=== PATIENT | male | born 2000 | race Caucasian/White ===

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

== ENCOUNTER 2024-09-02 09:55 | Day surgery (SDC) | payer MEDICARE, MEDICAID ==
[2024-08-31 11:16] LABS: BASOPHILS % (AUTO) 0.8 % (0-1); EOSINOPHILS # (AUTO) 0.1 X10'3 (0-0.9); EOSINOPHILS % (AUTO) 1.3 % (0-6); LYMPHOCYTES # (AUTO) 2.5 X10'3 (1.1-4.8); LYMPHOCYTES % (AUTO) 39.9 % (21-51); MEAN CORPUSCULAR HEMOGLOBIN 28.3 PG (27.0-31.0); MEAN CORPUSCULAR VOLUME 83.1 FL (78-98); MEAN PLATELET VOLUME 7.6 FL (7.4-10.4); MONOCYTES # (AUTO) 0.5 X10'3 (0-0.9); MONOCYTES % (AUTO) 7.2 % (2-12); NEUTROPHILS # (AUTO) 3.2 X10'3 (1.8-7.7); NEUTROPHILS % (AUTO) 50.8 % (42-75); PRE OP HEMATOCRIT 46.2 % (42.0-52.0); PRE OP HEMOGLOBIN 15.7 g/dL (14.0-17.9); PRE OP PLATELET COUNT 257 X10'3 (140-440); PRE OP WHITE BLOOD COUNT 6.2 10'3 (4.8-10.8); RED BLOOD COUNT 5.56 X10'6 (4.70-6.10); RED CELL DISTRIBUTION WIDTH 13.6 % (11.5-14.5)
[2024-08-31 11:48] LABS: ALBUMIN 4.3 G/DL (3.4-5.0); ALBUMIN/GLOBULIN RATIO 1.1 (1.1-1.5); ALKALINE PHOSPHATASE 87 IU/L (46-116); BLOOD UREA NITROGEN 14 MG/DL (7-18); BUN/CREATININE RATIO 14.7 (10.0-20.0); CALCIUM 9.2 MG/DL (8.5-10.1); CHLORIDE 104 MMOL/L (99-107); CREATININE 0.95 MG/DL (0.60-1.10); PRE OP ANION GAP 9 (8-16); PRE OP AST 64 U/L (10-37); PRE OP BILIRUB, TOTAL 0.6 MG/DL (0.0-1.0); PRE OP GLUCOSE 92 MG/DL (70-104); PRE OP POTASSIUM 4.6 MMOL/L (3.4-5.1); PRE OP SODIUM 139 MMOL/L (135-145); TOTAL CARBON DIOXIDE 25.8 MMOL/L (24-32); TOTAL PROTEIN 8.2 G/DL (6.4-8.2); eGFR > 90 ML/MIN
[2024-08-31 12:10] LABS: PRE OP ALT 122 U/L (30-65)
[~2024-09-02] VITALS: Ht 175.3 cm; Wt 136.0 kg
[2024-09-02] VITALS (10 sets, daily range): BP systolic 115–135; BP diastolic 59–95; PULSE 91–99; RESP 14–17; TEMP 98.9; O2SAT 95–98
[2024-09-02] MEDS: ceFAZolin 2gm/dext,iso 50mL 50 ML IV ONE (05:30)
[~2024-09-02 09:55] MED LIST: ESCI20TA39 PO; GUAN2TAB19 PO; MELA5TAB12 PO; QUET-1 PO
[2024-09-02] MEDS: ringers solution, lacted 1,000 ML IV SCH (10:44)
[2024-09-02] MEDS: famotidine 20mg tablet PO ONE (10:44)
[2024-09-02] MEDS ORDERED: sevoflurane 250ml liquid IH ONE (10:45)
[2024-09-02] MEDS ORDERED: morphine 4 MG/ML inj SYRINge IV PRN (10:50)
[2024-09-02] MEDS ORDERED: ondansetron/PF 4mg/2ml inj IV PRN (10:50)
[2024-09-02] MEDS ORDERED: labetalol 20mg/4ml (5mg/ml) syringe IV PRN (10:50)
[2024-09-02] MEDS ORDERED: ringers solution, lacted 1,000 ML IV SCH (10:50)
[2024-09-02] MEDS ORDERED: hydrALAZINE 20mg/ml inj. IV PRN (10:50)
[2024-09-02] MEDS ORDERED: HYDROmorphone/PF 0.2 MG/ML SYRINGE IV PRN ×2 (10:50)
[2024-09-02] MEDS ORDERED: meperidine/PF 25mg/ml syringe IV PRN (10:50)
[2024-09-02] MEDS ORDERED: acetaminophen 1,000mg/100ml IV 100 ML IV PRN (10:50)
[2024-09-02] MEDS ORDERED: morphine 2 MG/ML inj. syringe IV PRN (10:50)
[2024-09-02] MEDS ORDERED: proCHLORperazine 10 MG/2 ml inj IV PRN (10:50)
[2024-09-02] MEDS ORDERED: midazolam 1 mg/ML 2ml injection ONE (10:57)
[2024-09-02] MEDS ORDERED: fentaNYL /PF 50mcg/ml 5ml ampule ONE (11:12)
[2024-09-02] MEDS ORDERED: LIDOcaine 2% (20mg/ml) 5ml vial ONE (11:13)
[2024-09-02] MEDS ORDERED: ondansetron/PF 4mg/2ml inj ONE (11:13)
[2024-09-02] MEDS ORDERED: ROPIVAcaine 0.5% (5mg/ml) 30ml vial ONE ×2 (11:13)
[2024-09-02] MEDS ORDERED: dexamethasone sod phosphate 4mg/ml inj. ONE (11:13)
[2024-09-02] MEDS ORDERED: morphine 10mg/ml inj. ONE ×2 (12:55→13:44)
[2024-09-02] MEDS: bacitracin 15gm ointment TP ONE (13:41)
== END 2024-09-02 15:05 | disposition home or self-care (01) ==
LOC: PRE-OP 09:55
PROVIDERS: ATTEND Podiatrist Foot & Ankle Surgery
DX: M62.461 Contracture of muscle, right lower leg (principal); M21.41 Flat foot [pes planus] (acquired), right foot; M20.11 Hallux valgus (acquired), right foot; Z72.89 Other problems related to lifestyle; Z79.82 Long term (current) use of aspirin; Z79.899 Other long term (current) drug therapy; G89.18 Other acute postprocedural pain
CPT/HCPCS: 27687; 28715; 28730; 36415; 64447; 64450; 73620; 76942; 80053; 82948; 85025; A4618; A6223; A6253; A6402; A7000; C1713; J0690; J1100; J2003; J2175; J2250; J2270; J2405; J2704; J2795; J3010; J7030; J7120; Z7506; Z7508; Z7512; Z7610; 76000; A6449; J2274

== ENCOUNTER 2024-09-02 16:42 | Emergency (ER) | payer MEDICARE, MEDICAID ==
[~2024-09-02] VITALS: Ht 175.3 cm; Wt 138.0 kg
--- NOTE | 2024-09-02 16:49 | Physician Documentation ---
History of Present Illness ~ Stated Complaint: OPEN STUTURE Time Seen by MD: 16:48 OK to notify your PCP?: Yes Source: patient, RN/MD, RN notes reviewed, old records Mode of Arrival: EMS Exam Limitations: no limitations HPI Patient is postop surgery for right ankle surgery foot surgery slipped fell postoperatively in wound is dehisced. He now arrives by ambulance. 24 year old male seen in the ambulance bay presents to the emergency department via EMS for complaints of post operative complaints to his right ankle. Today patient had a surgery on his right ankle performed by Dr. West. He was discharged following his surgery and when he had gotten home he had tripped in his garage causing his sutures to open. Per Ems there was approximately 100cc of blood loss and EMS placed a pressure bandage on the patient. Patient denies any other associated symptoms at this time. Patient denies any other alleviating or exacerbating factors. Medication Reconciliation Allergies: Uncoded Allergies: EGG WHITE (Allergy, Intermediate, RASH, 09/02/24) Scheduled Escitalopram Oxalate (Escitalopram Oxalate), 1 TAB PO HS, (Reported) Guanfacine HCl (Guanfacine HCl ER), 1 TAB PO HS, (Reported) Melatonin (Melatonin), 1 TAB PO HS, (Reported) Quetiapine Fumarate (Seroquel), 100 MG PO HS, (Reported) Past Medical History Past Medical History: No Pertinent History Past Surgical History: no surgical history Alcohol Use: None Drug Use: none Lives In: Home Review of Systems All Other Systems at this time: Reviewed and Negative ROS As stated above in the HPI, otherwise all systems are reviewed and negative. Physical Exam Vital Signs: RN Vital Signs have been reviewed: Yes Pulse Oximetry Reflects: adequate oxygenation Physical Exam General: The patient is well developed, well nourished, nontoxic appearing and is in no acute distress. Skin: [place], warm and dry with no rashes. HEENT: Head was normocephalic and atraumatic. Eyes - pupils equal, round, reactive to light and accommodation. Extraocular movements were intact. Conjunctivae were nonicteric. Ears - bilateral tympanic membranes were normal. The mouth and oropharynx were clear with moist mucous membranes. There were no pharyngeal exudates or erythema. Neck: Supple and nontender. There was no jugular venous distention, lymphadenopathy, thyromegaly or masses. Chest: Clear to auscultation bilaterally without wheezes, rales or rhonchi. No accessory muscle use. No dullness to percussion. Heart: Rate regular and rhythmic. S1, S2. No murmurs. Palpation of the chest wall was normal. No rubs or thrills. Abdomen: Soft, nontender and nondistended. Positive bowel sounds. No guarding or rebound. No hepatosplenomegaly or palpable masses. Extremities: No cyanosis, clubbing or edema. The patient moves all extremities. Pulses were equal and symmetric. Suture 6cm in length in place to the medial calf. To the medial foot there is a dehissed broken suture with three sticthes that need to be replaced 15cm in length. To the lateral aspect of the right foot there is a 6cm insicion with active bleeding to the proximal aspect. Neurologic: Cranial nerves II-XII were intact. Sensation was intact to light touch throughout. Motor strength was 5/5 in all four extremities. Deep tendon reflexes were intact in both upper and lower extremities. Psychologic: The patient was oriented to person, place and time. The patient demonstrated appropriate judgement and insight. Procedures Laceration Repair : Location: right ankle Anesthesia: Lidocaine w/ Epi Repaired: skin Wound Repaired With: sutures Suture Size/Type: 4-0, ethilon Number of Superficial Sutures: 3 Dressing Applied: simple Splint Applied?: Yes Tolerated Procedure Well?: yes, no complications Splinting Hand-Made Type: orthoglass Pre-Proc Neuro Vasc Exam: normal Post-Proc Neuro Vasc Exam: normal Splint Placed By: pit tanner Tolerated Procedure Well?: yes, no complications Procedure Note Patient was given a [place] splint by the electronic train control technician and tolerated the procedure well. Progress Results/Orders Reviewed/noted all lab results: Yes Results/Orders Orders - LUKE GARCIA MD, Md To Page (09/02/24 17:08) Completed Orders - LUKE GARCIA MD Lidocaine 1% W/Epi 1:100,000 (Xylocaine (09/02/24 17:30) Cbc/Diff (09/02/24 17:58) Vital Signs 09/02/24 09/02/24 09/02/24 16:55 17:15 18:37 Temp 98.4 Pulse 120 122 Resp 16 12 B/P (MAP) 135/53 128/77 (94) Pulse Ox 97 95 O2 Flow Rate 0 0 Laboratory Tests Test 09/02/24 18:11 White Blood Count 13.6 H Red Blood Count 5.10 Hemoglobin 14.3 Hematocrit 42.8 Mean Corpuscular Volume 83.8 Mean Corpuscular Hemoglobin 28.1 Mean Corpuscular Hemoglobin Concent 33.5 Red Cell Distribution Width 13.6 Platelet Count 282 Mean Platelet Volume 8.1 Neutrophils (%) (Auto) 91.2 H Lymphocytes (%) (Auto) 7.1 L Monocytes (%) (Auto) 1.6 L Eosinophils (%) (Auto) 0 Basophils (%) (Auto) 0.1 Neutrophils # (Auto) 12.4 H Lymphocytes # (Auto) 1.0 L Monocytes # (Auto) 0.2 Eosinophils # (Auto) 0.0 Basophils # (Auto) 0.0 CBC Comment Re-Evaluation Re-Evaluation : Re-Evaluation: Improved Progress Patient was seen and examined. Patient is given reassurance. The patient is sutures were torn at one location there is a fair amounts of soft tissue bleeding. Patient is wounds were re sutured in a few areas. The patient was then discharged home put a splint back on. I did discussed the case with the treating surgeon. Patient should follow up with the surgeon on the outpatient basis as scheduled. Elevation ice was emphasized at to the patient. Medical Decision Making Additional info obtained from: old records Foot Diff Dx:Considerations: Include: Hematoma, Neurovascular injury, Other Departure Disposition: HOME / SELF CARE / HOMELESS Impression: Primary Impression: Post-op bleeding Qualified Codes: L76.22 - Postprocedural hemorrhage of skin and subcutaneous tissue following other procedure Additional Impressions: Dehiscence of wound Suture check Condition: Stable Discharge Instructions: Laceration Care, Adult, [id number] Referrals: NO PRIMARY CARE PROVIDER (PCP) Education Educated: Patient, Family Educated regarding: diagnosis, treatment, prognosis, need for follow up Signature Scribe Signature: Scribed for Luke Garcia MD by Zahira Poon . 09/02/24 17:46 Attestation: The note accurately reflects work and decisions made by me.Luke Garcia MD 09/02/24 16:49 LUKE GARCIA MD Sep 02, 2024 16:49 ZAHIRA GAONA Sep 02, 2024 17:46
[2024-09-02 16:55] VITALS: TEMP 98.4
[2024-09-02] MEDS: LIDOcaine 1% W/epiNEPHrine 1:100,000 20ml vial SQ ONE (17:58)
[2024-09-02 18:34] LABS: BASOPHILS % (AUTO) 0.1 % (0-1); EOSINOPHILS % (AUTO) 0 % (0-6); HEMATOCRIT 42.8 % (42.0-52.0); HEMOGLOBIN 14.3 g/dl (14.0-17.9); LYMPHOCYTES % (AUTO) 7.1 % (21-51); MEAN CORPUSCULAR HEMOGLOBIN 28.1 PG (27.0-31.0); MEAN CORPUSCULAR HGB CONC 33.5 g/dL (33.0-36.5); MEAN CORPUSCULAR VOLUME 83.8 FL (78-98); MEAN PLATELET VOLUME 8.1 FL (7.4-10.4); MONOCYTES # (AUTO) 0.2 X10'3 (0-0.9); MONOCYTES % (AUTO) 1.6 % (2-12); NEUTROPHILS # (AUTO) 12.4 X10'3 (1.8-7.7); NEUTROPHILS % (AUTO) 91.2 % (42-75); PLATELET COUNT 282 X10'3 (140-440); RED CELL DISTRIBUTION WIDTH 13.6 % (11.5-14.5); WHITE BLOOD COUNT 13.6 X10'3 (4.5-11.0)
[2024-09-02 18:37] VITALS: BP 128/77; PULSE 122; RESP 12; O2SAT 95
== END 2024-09-02 20:54 | disposition home or self-care (01) ==
LOC: ER 16:42
DX: L76.22 Postprocedural hemorrhage of skin and subcutaneous tissue following other procedure (principal); T81.30XA Disruption of wound, unspecified, initial encounter; W01.0XXA Fall on same level from slipping, tripping and stumbling without subsequent striking against object, initial encounter; Y93.89 Activity, other specified; Y92.89 Other specified places as the place of occurrence of the external cause; Y99.8 Other external cause status
CPT/HCPCS: 12020; 36415; 85025; 99284; A6222; A6223; A6258; A6402; A6446; A6449; Z7610; 12002; 99283